=== PATIENT | female | born 1980 | race African-American/Black ===

== ENCOUNTER 2017-05-07 16:13 | Emergency (ER) | payer OTHER | END 2017-05-07 16:34 | disposition left against medical advice (07) | LOC: UCEAST 16:13 | DX: Z04.1 Encounter for examination and observation following transport accident (principal); Z53.21 Procedure and treatment not carried out due to patient leaving prior to being seen by health care provider ==

== ENCOUNTER 2017-07-17 17:51 | Inpatient (IN) | payer OTHER ==
[2017-07-17 20:48] LABS: ABS Basophils 0 10^3/ul (0-0.2); ABS Eosinophils 0 10^3/ul (0-0.6); ABS Lymphocytes 1.4 10^3/ul (1.0-4.8); ABS Monocytes 0.7 10^3/ul (0-0.8); ABS Neutrophils 7.6 10^3/ul (1.5-7.7); ABS Nucleated RBC 0 10^3/ul; Eosinophil % 0.1 % (0-6); Hematocrit 37 % (35-47); Hemoglobin 12.5 g/dl (12.0-16.0); Lymphocyte % 14.3 % (25-47); Mean Corpuscular HGB Conc 34 g/dl (31-36); Mean Corpuscular Hemoglobin 30 pg (27-31); Mean Corpuscular Volume 88 fL (80-97); Mean Platelet Volume 11.4 um3 (7.4-10.4); Nucleated Red Blood Cells % 0; Platelet Count 109 10^3/ul (150-450); Red Blood Count 4.22 10^6/ul (4.0-5.4); Red Cell Distribution Width 13 % (10.5-15); White Blood Count 9.7 10^3/ul (3.5-10.8)
[2017-07-17] MEDS ORDERED: Morphine INJ** 4 MG/ML 1 ML CARPUJECT IV ONE (21:32)
[2017-07-17] MEDS ORDERED: Ondansetron INJ* 2 MG/ML VIAL IV ONE (21:32)
[2017-07-17] MEDS ORDERED: Labetalol IV* 5 MG/ML 20 ML VIAL IV PUSH ONE (21:34)
[2017-07-17] MEDS ORDERED: Morphine INJ* 4 MG/ML 1 ML SYRINGE (NEW SYRINGE VERSION) ONE (21:49)
[2017-07-17 22:19] LABS: Urine Appearance Cloudy; Urine Blood Negative (Negative); Urine Color Amber; Urine Ketones Trace (Negative); Urine Protein Negative (Negative); Urine Red Blood Cell Absent (Absent); Urine Specific Gravity 1.023 (1.010-1.030); Urine Urobilinogen Positive (Negative); Urine White Blood Cell Trace(0-5/hpf) (Absent)
[2017-07-17] MEDS ORDERED: Piperacillin/Tazobac ADVAN(*) 3.375 GM in NS 0.9% 100 ML* 100 ML IVPB ONE ×2 (22:21→22:54)
[2017-07-17] MEDS ORDERED: Zosyn per Pharmacy* NOTE FOLLOW UP SCH (23:00)
[2017-07-18] MEDS: NS 0.9% 1000 ML* 1,000 ML IV SCH ×3 (00:09→17:05)
[2017-07-18] MEDS: Morphine INJ* 4 MG/ML 1 ML SYRINGE (NEW SYRINGE VERSION) IV PRN ×5 (00:09→22:21)
--- NOTE | 2017-07-18 00:25 | ED ---
Rayo Nair Abhishek, scribed for Alex Zarco MD on 07/17/17 at 2204 . Abdominal Pain/Female - HPI Summary HPI Summary: This pt is a 36 y/o female presenting to the [facility] with accompanied by her with a chief complain of abd pain. The pt is 8 months ( P:7 and A:0). PT does not speak Lithuanian very well and the hx is given by her . Pt has been having abd pain since this morning 07/17/17 with vomiting, nausea and hypertension. The patient rates the pain 7/10 in severity. Symptoms aggravated by nothing. Symptoms alleviated by nothing. - History of Current Complaint Chief Complaint: EDAbdPain Stated Complaint: ABD PAIN Time Seen by Provider: 07/17/17 21:23 Hx Obtained From: Patient Onset/Duration: Lasting Hours - Since this morning Timing: Constant Severity Initially: Moderate Severity Currently: Moderate Pain Intensity: 7 Pain Scale Used: 0-10 Numeric Location: Diffuse Aggravating Factor(s): Nothing Alleviating Factor(s): Nothing Associated Signs and Symptoms: Positive: Nausea, Vomiting, Other: - Hypertension Allergies/Adverse Reactions: Allergies Allergy/AdvReac Type Severity Reaction Status Date / Time No Known Allergies Allergy Verified 07/17/17 21:43 PMH/Surg Hx/FS Hx/Imm Hx Cardiovascular History: Reports: Hx Hypertension Opthamlomology History: Denies: Hx Legally Blind EENT History: Denies: Hx Deafness Infectious Disease History: No Infectious Disease History: Denies: Traveled Outside the [place] in Last 30 Days - Family History Known Family History: Positive: Diabetes - Social History Alcohol Use: None Substance Use Type: Reports: None Smoking Status (MU): Never Smoked Tobacco Review of Systems Constitutional: Negative Eyes: Negative ENT: Negative Cardiovascular: Other - Hypertensive Respiratory: Negative Positive: Abdominal Pain, Vomiting Genitourinary: Negative Musculoskeletal: Negative Skin: Negative Neurological: Negative Psychological: Normal All Other Systems Reviewed And Are Negative: Yes Physical Exam - Summary Physical Exam Summary: Appearance: Well appearing, Uncomfortable, mild distress , PT is 8 months Skin: warm, dry, reflects adequate perfusion Head/face: normal Eyes: EOMI, BIN ENT: normal Neck: supple, non-tender Respiratory: CTA, breath sounds present Cardiovascular: RRR, pulses symmetrical Abdomen: non-tender, soft, Positive murphys sign tenderness in the right upper quadrant Bowel Sounds: present Musculoskeletal: normal, strength/ROM intact Neuro: normal, sensory motor intact, A&Ox3 Triage Information Reviewed: Yes Vital Signs On Initial Exam: Initial Vitals Temp Pulse Resp BP Pulse Ox 96.9 F 51 22 118/59 100 07/17/17 17:56 07/17/17 17:56 07/17/17 17:56 07/17/17 17:56 07/17/17 17:56 Vital Signs Reviewed: Yes Diagnostics - Vital Signs Vital Signs Temp Pulse Resp BP Pulse Ox 07/17/17 21:55 20 07/17/17 20:50 97.2 F 50 134/83 100 07/17/17 17:56 96.9 F 51 22 118/59 100 - Laboratory Lab Results: Lab Results 07/17/17 07/17/17 Range/Units 20:09 20:09 WBC 9.7 (3.5-10.8) 10^3/ul RBC 4.22 (4.0-5.4) 10^6/ul Hgb 12.5 (12.0-16.0) g/dl Hct 37 (35-47) % MCV 88 (80-97) fL MCH 30 (27-31) pg MCHC 34 (31-36) g/dl RDW 13 (10.5-15) % Plt Count 109 L (150-450) 10^3/ul MPV 11.4 H (7.4-10.4) um3 Neut % (Auto) 78.6 (38-83) % Lymph % (Auto) 14.3 L (25-47) % Coke % (Auto) 6.8 (0-7) % Eos % (Auto) 0.1 (0-6) % Baso % (Auto) 0.2 (0-2) % Absolute Neuts (auto) 7.6 (1.5-7.7) 10^3/ul Absolute Lymphs (auto) 1.4 (1.0-4.8) 10^3/ul Absolute Monos (auto) 0.7 (0-0.8) 10^3/ul Absolute Eos (auto) 0 (0-0.6) 10^3/ul Absolute Basos (auto) 0 (0-0.2) 10^3/ul Absolute Nucleated RBC 0 10^3/ul Nucleated RBC % 0 Large Platelets Present Sodium 134 L (139-145) mmol/L Potassium 3.7 (3.5-5.0) mmol/L Chloride 104 (101-111) mmol/L Carbon Dioxide 20 L (22-32) mmol/L Anion Gap 10 (2-11) mmol/L BUN 8 (6-24) mg/dL Creatinine 0.57 (0.51-0.95) mg/dL Est GFR ( Amer) 154.3 (>60) Est GFR (Non-Af Amer) 120.0 (>60) BUN/Creatinine Ratio 14.0 (8-20) Glucose 83 (70-100) mg/dL Calcium 9.0 (8.6-10.3) mg/dL Total Bilirubin 1.10 H (0.2-1.0) mg/dL AST 29 (13-39) U/L ALT 25 (7-52) U/L Alkaline Phosphatase 175 H (34-104) U/L C-Reactive Protein 2.64 (< 5.00) mg/L Total Protein 7.3 (6.4-8.9) g/dL Albumin 3.5 (3.2-5.2) g/dL Globulin 3.8 (2-4) g/dL Albumin/Globulin Ratio 0.9 L (1-3) Lipase 21 (11.0-82.0) U/L Result Diagrams: 07/17/17 20:09 07/17/17 20:09 Lab Statement: Any lab studies that have been ordered have been reviewed, and results considered in the medical decision making process. - Ultrasound No standard instances Ultrasound Interpretation Completed By: Radiologist - US Gallbladder reveals, as per radiologist, cholelithiasis with thickening of the gallbladder wal measuring up to 5 mm and trace pericholecystic fluid concerning for acute cholecystitis. Negative sonographic Herrera sign was reported. Prominent common bile duct measuring up to 8.5 mm. No obstructing stones seen within the visualized portions fo the duct although cannot rule out choledocholithiasis. Consider further evaluation with MRCP. The liver visualized portion of the right kidney and visualized portions of the abdominal aorta and IVC are unremarkable. The pancreas is largely obscured by overlying bowel gas. ED physician has reviewed this radiology report. - EKG 1 EKG Rhythm: Sinus Rhythm - [address] Segment: Non-Specific EKG Interpretation: An EKG reveals Elevated j point in lead 2, no acute findings , normal axis Re-Evaluation - Re-Evaluation 2220 Re-Evaluation Time: 22:20 Change: Improved Comment: heart rate 132 with no contractions Abdominal Pain Fem Course/Dx - Course Course Of Treatment: ~35wk preg with RUQ pain,vomiting. +herrera and US evidence of cholecystitis. monitoring indicates no contractions. Pain tx and improved. BP was up initially but came down with controlled discomfort. No other findings c/w pre-ecclampsia. Plts low. LFTs wnl aside from Tbili 1.1 and alk phos up. D/W surgery who accepts, OBGYN will consult. - Diagnoses Differential Diagnosis: Positive: Other - Labor, GB dz, choledocolithiasis Provider Diagnoses: Cholecystitis, acute, Third trimester , Thrombocytopenia affecting - Provider Notifications Discussed Care Of Patient With: Rich Us - we discussed pt care after reffering to surgery, BED WORKER and hospitalist. He accepts pt care. Time Discussed With Above Provider: 22:30 Instructed by Provider To: Admit As Inpatient - Critical Care Time Critical Care Time: 30-74 min - CCT is EXCLUSIVE of separately billable procedures Discharge - Sign-Out/Discharge Documenting (check all that apply): Discharge - [place] is admitted [place] [facility] [place] Discharge Plan Condition: Guarded Disposition: ADMITTED TO [facility] - Billing Disposition and Condition Condition: GUARDED Disposition: [facility] [place] The documentation as recorded by the Rayo raman Abhishek accurately reflects the service I personally performed and the decisions made by , Alex Zarco MD.
[2017-07-18] MEDS: Piperacillin/Tazobactam 13.5 GM IV 24 hour continuous infusion IVPB SCH ×2 (03:40)
--- NOTE | 2017-07-18 07:34 | RAD ---
HISTORY: Right upper quadrant pain COMPARISONS: None TECHNIQUE: Multiple transverse and longitudinal ultrasound images were obtained of the right upper quadrant of the abdomen using grayscale and color Doppler imaging. FINDINGS: The study is limited by patient bowel gas. LIVER: The liver is normal in shape, size, contour, and echogenicity. There are no focal parenchymal masses. There is normal hepatopedal flow of the portal vein on Doppler imaging. BILIARY TREE: There is dilatation of the common duct. There is mild intrahepatic biliary dilatation The common duct measures 0.8 cm. GALLBLADDER: The gallbladder is distended. Multiple shadowing echogenic foci consistent with gallstones are noted. There is no lateral thickening up to 0.5 cm. There is pericholecystic fluid. There is no sonographic Herrera's sign.. PANCREAS: The pancreas is obscured by overlying bowel gas. RIGHT KIDNEY: The right kidney is not well visualized secondary to bowel gas. AORTA AND IVC: The visualized aorta and IVC are unremarkable. FLUID: There are no pleural effusions. There is no free fluid within the hepatorenal recess. OTHER FINDINGS: None. IMPRESSION: 1. LIMITED STUDY. 2. GALLSTONES ARE NOTED WITH GALLBLADDER WALL THICKENING AND PERICHOLECYSTIC FLUID. NO SONOGRAPHIC HERRERA'S SIGN IS REPORTED. THE IMAGING APPEARANCE IS SUGGESTIVE OF, BUT INDETERMINATE FOR, ACUTE CHOLECYSTITIS. 3. THERE IS MILD INTRAHEPATIC AND EXTRAHEPATIC BILIARY DILATATION. THE COMMON DUCT MEASURES UP TO 0.8 CM IN SIZE. GIVEN THE PRESENCE OF STONES, CHOLEDOCHOLITHIASIS IS WITHIN THE DIFFERENTIAL.
--- NOTE | 2017-07-18 08:03 | RAD ---
HISTORY: Abdominal pain, . The gestational age by dates is: 35 weeks, 1 day COMPARISONS: None available at the time of dictation. TECHNIQUE: Multiple transverse and longitudinal ultrasound images were obtained of the gravid uterus using Grayscale, color Doppler, and M-mode Doppler imaging. FINDINGS: /PLACENTAL EVALUATION: Number of fetuses: Single Presentation: Cephalic cardiac activity: 142 bpm Gross motion: Observed Placenta position: Anterior Amniotic fluid volume: Decreased, without measurable pockets in the left lower quadrant or right upper quadrant FITO: 7.47 cm BIOMETRY: Biparietal diameter: 8.29 cm 33 weeks, 3 days Head circumference: 30.92 cm 34 weeks, 4 days Abdominal circumference: 30.84 cm 35 weeks and 1 day Femur length: 6.78 cm 34 weeks, 6 days HC/AC: 1.01 Estimated weight: 2476 grams, +/- 362 grams GESTATIONAL AGE: The composite gestational age is: 34 weeks, 4 days. The ANIL is: August 24, 2017. This is concordant with age by dates ANATOMY: cranium: Not evaluated ventricles: Not evaluated choroid plexus: Not evaluated cerebellum: Not evaluated posterior fossa: Not evaluated face/orbits/lips: Not evaluated spine: Not evaluated heart: Normal 4 chamber diaphragm: Not evaluated stomach: Not evaluated kidneys: Not evaluated bladder: Not evaluated cord: Not evaluated CERVIX: The cervix is long and closed, without funneling.. The cervix measures 2.1 cm. OTHER: None IMPRESSION: 1. SINGLE LIVE INTRAUTERINE GESTATION AT 34 WEEKS, 4 DAYS BY COMPOSITE GESTATIONAL AGE. 2. OLIGOHYDRAMNIOS. THE AMNIOTIC FLUID INDEX IS AT THE 2.5TH PERCENTILE FOR GESTATIONAL AGE. 3. LIMITED EVALUATION OF ANATOMY. PRELIMINARY FINDINGS WERE DISCUSSED WITH VIKTORIYA, THE NURSE CARING FOR THE PATIENT, AT APPROXIMATELY 7:59 AM ON JULY 18, 2017.
[2017-07-18] MEDS: Ondansetron INJ* 2 MG/ML VIAL IV PRN ×2 (08:15→22:22)
--- NOTE | 2017-07-18 09:12 | PN ---
Progress Note - Progress Note Date of Service: 07/18/17 Note: H&P dictated. Impression/Plan: Acute calculous cholecystitis in a 36 weeks female Continue IV Abx OB consultation appreciated, monitoring Hopefully to improve with antibiotics until delivery time IVF and analgesics
--- NOTE | 2017-07-18 14:50 | PN ---
Progress Note - Progress Note Date of Service: 07/18/17 Note: Surgery Ms. Dale seen with Dr. Duran who translated. She indicated that she has been tolerating clears and that the pain is still there, but better than yesterday Abd: Gravid, soft, tender without guarding in the RUQ and epigastrium. Laboratory Results - last 24 hr 07/17/17 07/17/17 07/17/17 20:09 20:09 22:00 WBC 9.7 RBC 4.22 Hgb 12.5 Hct 37 MCV 88 MCH 30 MCHC 34 RDW 13 Plt Count 109 L MPV 11.4 H Neut % (Auto) 78.6 Lymph % (Auto) 14.3 L Calloway % (Auto) 6.8 Eos % (Auto) 0.1 Baso % (Auto) 0.2 Absolute Neuts (auto) 7.6 Absolute Lymphs (auto) 1.4 Absolute Monos (auto) 0.7 Absolute Eos (auto) 0 Absolute Basos (auto) 0 Absolute Nucleated RBC 0 Nucleated RBC % 0 Large Platelets Present Sodium 134 L Potassium 3.7 Chloride 104 Carbon Dioxide 20 L Anion Gap 10 BUN 8 Creatinine 0.57 Est GFR ( Amer) 154.3 Est GFR (Non-Af Amer) 120.0 BUN/Creatinine Ratio 14.0 Glucose 83 Calcium 9.0 Total Bilirubin 1.10 H AST 29 ALT 25 Alkaline Phosphatase 175 H C-Reactive Protein 2.64 Total Protein 7.3 Albumin 3.5 Globulin 3.8 Albumin/Globulin Ratio 0.9 L Lipase 21 Urine Color Nicolle Urine Appearance Cloudy Urine pH 5.0 Ur Specific Piggott 1.023 Urine Protein Negative Urine Ketones Trace A Urine Blood Negative Urine Nitrate Negative Urine Bilirubin Negative Urine Urobilinogen Positive A Ur Leukocyte Esterase 2+ A Urine WBC (Auto) Trace(0-5/hpf) Urine RBC (Auto) Absent Ur Squamous Epith Cells Present A Urine Bacteria Absent Urine Glucose Negative A/P: Stable exam; will continue abx and observation. CLFoster
--- NOTE | 2017-07-18 16:57 | CONS ---
AMENDED REPORT NOW INCLUDES DATE OF CONSULT - ESIGNED BEFORE ADJUSTMENT SURGICAL CONSULTATION REPORT: DATE OF CONSULT: 07/18/17 HISTORY OF PRESENT ILLNESS: Mrs. Dale is a 36-year-old multiparous lady, 8, para 7-0-0-7 with an intrauterine at 35 and 2/7th weeks, estimated gestational age. She was admitted to the hospital last night with diagnosis of abdominal pain secondary to cholelithiasis. The patient's care has been uncomplicated to this date except for first trimester nausea and varicose veins which are treated with compression stockings. The patient is up-to- date with her flu and TDAP vaccines and care. PAST MEDICAL HISTORY: Asymptomatic uterine fibroids. PAST SURGICAL HISTORY: None. OBSTETRICAL HISTORY: Seven full-term spontaneous vaginal deliveries without complications. GYNECOLOGIC HISTORY: Denies history of sexually transmitted diseases. FAMILY HISTORY: Diabetes. 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 Limited Serbian language proficiency. She speaks Guyanese. She denies cigarette, alcohol or drug use. REVIEW OF SYSTEMS: The patient is in bed. She appears comfortable after taking pain medication. She denies chest pain, palpitations. Denies shortness of breath, has had no nausea or vomiting this morning. She asked about eating this a.m. and she states she is a bit hungry. She denies uterine contractions, admits to movement. She denies leakage of fluid. No vaginal bleeding. She also denies any headaches or visual changes. PHYSICAL EXAM: Vital Signs: This morning, she is afebrile, stable vital signs with normal blood pressure. Her lungs are clear to auscultation bilaterally. Her heart shows regular rate and rhythm with no abnormal heart sounds. Her abdomen is soft, gravid with palpable movement. No contractions. She has a right upper quadrant pain and guarding. Pelvic exam was deferred. Her bilateral lower extremities show +2 normal reflexes. DIAGNOSTIC STUDIES/LAB DATA: Labs review, complete blood cell count, complete metabolic panel along with a lipase level, gallbladder ultrasound and a ultrasound. CBC is consistent with thrombocytopenia. Her liver function studies are within normal limits. Lipase is also normal. Gallbladder ultrasound consistent with cholelithiasis. Her ultrasound shows appropriate interval growth with an amniotic fluid index of 7.4 cm which is within normal limits. IMPRESSION AND PLAN: This is a at 35 weeks estimated gestational age , complicated with right upper quadrant pain, cholelithiasis. I agree with conservative management with IV hydration, antibiotics and analgesia. I would defer to Surgical team to asses for need of surgical intervention, which should be for similar indications as a non patient. My recommendations are daily non-stress for well being, please call labor and delivery if the patient has any signs or symptoms of labor, if possible patient should lie in a left lateral decubitus position. You may also want to consider a consultation with Anesthesia especially if surgery becomes more of a reality. [id number]/[facility] #: [id number] MARIKAD
--- NOTE | 2017-07-18 17:30 | HP ---
CC: Dr. Ger Ibanez HISTORY AND PHYSICAL: DATE OF ADMISSION: 07/17/17 PATIENT OF: Rich Us MD * (DICTATED BY PRAVEEN COUGHLIN) CHIEF COMPLAINT: Abdominal pain. HISTORY OF PRESENT ILLNESS: Vandana is a pleasant 36-year-old female who presented to the emergency room at [facility] with 24-hour history of worsening abdominal pain. The patient is an 8-month female who is G8, P7, who speaks very little Nigerien and most of her history was obtained from the ED note as well as her . She presented complaining of upper abdominal pain that started earlier that morning with associated and nausea and vomiting. She described it as dull aching pain with sharp episodes localized to the epigastric and right upper quadrant area and radiates to her back. Pain was aggravated by nothing and alleviated by rest and time. She reports similar complaints of abdominal pain on and off over the years that usually resolved with time. She had migrated to the [facility] few years ago and lives with her who works as a migrant worker at local [employer]. The patient was evaluated in the emergency room and had laboratory workup as well as an ultrasound that revealed evidence of cholelithiasis as well as thickening of gallbladder wall, for which we were asked to see the patient for further evaluation of possible cholecystitis. PAST MEDICAL HISTORY: Essentially unremarkable. She is a previously healthy young female with only history of hypertension in the past that is likely related to her multiple pregnancies. She denies any history of heart, liver, lungs or kidney disease. PAST SURGICAL HISTORY: None. CURRENT MEDICATIONS: She does not take any medications on a regular basis. ALLERGIES: She has no known drug allergies. FAMILY HISTORY: Reports family history of diabetes in her family, but denies any family history of gallbladder disease or colorectal malignancies. 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 She has never smoked or drinks alcohol. She lives at home and takes care of her kids. REVIEW OF SYSTEMS: See HPI, otherwise negative. She denies any headache, dizziness, blurred vision or syncope. No hearing loss, visual changes, sore throat, cough, wheezing or shortness of breath. She denies any chest pain, palpitation or ankle swelling. No back pain, flank pain, suprapubic pain, dysuria, hematuria or urinary frequency. She denies any pelvic pain or contraction or vaginal bleeding. She reports upper abdominal pain radiating to her back with associated nausea and vomiting but denies any changes in the color of stool or urine. No fever, chills, night sweats or recent weight loss. PHYSICAL EXAMINATION GENERAL: She is a pleasant, healthy appearing young female in no acute distress or discomfort at the time of admission. VITAL SIGNS: Most recent set of vitals reveal temperature of 98.7, pulse 62, blood pressure of 123/69, respirations of 16 and O2 sat of 98% on room air. HEENT: Head is normocephalic, atraumatic. Sclerae anicteric. PERRLA. EOMs intact. Oropharynx is dry. NECK: Supple. Trachea midline. No cervical adenopathy or thyromegaly. LUNGS: Clear to auscultation bilaterally. HEART: Regular rate and rhythm. Normal S1, S2 without rubs, murmurs, or gallops. ABDOMEN: Soft and gravid, with fundus of uterus 2 to 3 finger width beyond the xiphoid process. There is moderate epigastric and right upper quadrant tenderness with light palpation. There is some guarding but no rigidity or rebound tenderness. There are no hernias, masses or hepatosplenomegaly. There are multiple striae in the abdomen from previous multiple pregnancies. Herrera' s sign was positive. EXTREMITIES: Without cyanosis, clubbing or edema. RECTAL: Deferred at this time. NEUROLOGIC: Grossly intact. BACK: Normal curvature. No CVA tenderness. BREAST: Deferred at this time. ACCESSORY DIAGNOSTIC DATA: The patient had an ultrasound of the right upper quadrant last night that revealed evidence of gallstones as well as gallbladder wall thickening and pericholecystic fluid. The common bile duct measured up to 8th mm suggesting possibility of choledocholithiasis. The patient also had ultrasound that revealed a live intrauterine conception with estimated gestation of 35 weeks. LABORATORY WORKUP: The patient had a CBC last night that revealed white count of 9000, hemoglobin of 12.5, hematocrit of 37 and low platelets of 109. Her chemistry panel with sodium of 134, potassium 3.7, chloride 104, CO2 of 20, BUN of 8, and creatinine of 0.6. Her LFTs with slightly elevated bilirubin of 1.1 and alkaline phosphatase of 175. The rest was all within normal limits. Her urinalysis revealed a positive uro-bilirubin and 2+ leukocyte esterase with traces of ketones. IMPRESSION: A 36-year-old female, G8, P7 who presents with signs and symptoms consistent with acute calculus cholecystitis. PLAN/RECOMMENDATIONS: The patient was seen and examined with Dr. Us last night. We will keep her n.p.o. for the time being and initiate empiric antibiotic therapy. OB consultation was requested and is being done this morning. She appears to be comfortable this morning from surgical point of view and we will maintain her on antibiotic for the time being hopefully to avoid any surgical intervention until delivery of her child. I discussed with her the possibility of surgical intervention if she does not improve on the IV antibiotics or the possibility of cholecystotomy to perform gallbladder drainage to buy time until delivery. We will await the recommendation of OB consult and we will follow her up closely. PRAVEEN COUGHLIN [id number]/[facility] #: [id number] CARLOS
[2017-07-19] MEDS: Morphine INJ* 4 MG/ML 1 ML SYRINGE (NEW SYRINGE VERSION) IV PRN ×2 (00:38→04:45)
[2017-07-19] MEDS: NS 0.9% 1000 ML* 1,000 ML IV SCH ×3 (01:33→21:09)
[2017-07-19] MEDS: Piperacillin/Tazobactam 13.5 GM IV 24 hour continuous infusion IVPB SCH ×2 (04:39)
[2017-07-19] MEDS: Ondansetron INJ* 2 MG/ML VIAL IV PRN ×3 (04:45→19:08)
[2017-07-19 05:44] LABS: ABS Basophils 0 10^3/ul (0-0.2); ABS Eosinophils 0 10^3/ul (0-0.6); ABS Lymphocytes 1.4 10^3/ul (1.0-4.8); ABS Monocytes 0.4 10^3/ul (0-0.8); ABS Neutrophils 3.9 10^3/ul (1.5-7.7); ABS Nucleated RBC 0 10^3/ul; Eosinophil % 0.4 % (0-6); Hematocrit 35 % (35-47); Hemoglobin 11.9 g/dl (12.0-16.0); Mean Corpuscular HGB Conc 34 g/dl (31-36); Mean Corpuscular Hemoglobin 30 pg (27-31); Mean Corpuscular Volume 89 fL (80-97); Nucleated Red Blood Cells % 0.1; Platelet Count 94 10^3/ul (150-450); Red Blood Count 3.95 10^6/ul (4.0-5.4); Red Cell Distribution Width 14 % (10.5-15); White Blood Count 5.7 10^3/ul (3.5-10.8)
[2017-07-19] MEDS ORDERED: Morphine VIAL* 4 MG/ML VIAL (1 ml vial) IV PRN (07:42)
[2017-07-19] MEDS ORDERED: Morphine VIAL* 4 MG/ML VIAL (1 ml vial) IV ONE (07:55)
--- NOTE | 2017-07-19 08:35 | PN ---
Progress Note - Progress Note Date of Service: 07/19/17 SOAP: Subjective: Interview conducted with online solar sales assessor. She feels about the same as yesterday--requiring some narcotic pain meds with good result. Also has some pain after drinking fluids. No nausea or vomiting. No uterine contractions Objective: Temp Pulse Resp BP Pulse Ox 97.6 F 70 20 125/62 96 07/19/17 07:28 07/19/17 07:28 07/19/17 07:28 07/19/17 07:28 07/19/17 07:28 Intake & Output 07/17/17 07/18/17 07/19/17 07/20/17 06:59 06:59 06:59 06:59 Intake Total 852 4079 Output Total 350 2300 250 Balance 502 1779 -250 Weight 175 lb Intake: IV Fluids 852 2879 ABX - ZOSYN 61 375 NS (0.9%) 791 2504 Oral 0 1200 Output: Urine 350 2300 250 Other: Estimated Void Medium # Voids 1 PEX: Comfortable Awake and alert Lungs are clear Abd is protuberant--bowel sounds are present and normoactive. Mild tenderness in epigastrum and right upper quadrant without rebound or guarding. Uterus palpated well above the umbilicus Laboratory Results - last 24 hr 07/19/17 07/19/17 04:59 04:59 WBC 5.7 RBC 3.95 L Hgb 11.9 L Hct 35 MCV 89 MCH 30 MCHC 34 RDW 14 Plt Count 94 L MPV 11.0 H Neut % (Auto) 67.4 Lymph % (Auto) 24.0 L [place] % (Auto) 7.8 H Eos % (Auto) 0.4 Baso % (Auto) 0.4 Absolute Neuts (auto) 3.9 Absolute Lymphs (auto) 1.4 Absolute Monos (auto) 0.4 Absolute Eos (auto) 0 Absolute Basos (auto) 0 Absolute Nucleated RBC 0 Nucleated RBC % 0.1 Sodium 136 L Potassium 3.8 Chloride 107 Carbon Dioxide 21 L Anion Gap 8 BUN 6 Creatinine 0.61 Est GFR ( Amer) 142.7 Est GFR (Non-Af Amer) 111.0 BUN/Creatinine Ratio 9.8 Glucose 68 L Calcium 8.6 Total Bilirubin 1.00 AST 19 ALT 23 Alkaline Phosphatase 181 H Total Protein 6.5 Albumin 3.2 Globulin 3.3 Albumin/Globulin Ratio 1.0 Assessment: Cholelithiasis--probable acute calculous cholecystitis-nl WBC, no fever but complaints of pain about the same--worse when trying liquids. - approximately 34-35 weeks Plan: Will keep NPO IV abx Close observation-if no improvement next 24 hours will have to consider cholecystectomy, will also look into possibility of percutaneous drainage. All discussed with patient.
[2017-07-19] MEDS: Morphine VIAL* 4 MG/ML VIAL (1 ml vial) IV PRN ×2 (11:31→13:57)
--- NOTE | 2017-07-19 13:46 | PN ---
Progress Note - Progress Note Date of Service: 07/19/17 Note: pt feelling slight improvement but continued pain when she eats or drinks. baby is active reviewed surgery note. no current change in recommendations by us. will continue to be available for consultation . will check nst
[2017-07-19] MEDS ORDERED: Morphine INJ* 2 MG/ML 1 ML CARPUJECT IV PRN (15:05)
[2017-07-20] MEDS: NS 0.9% 1000 ML* 1,000 ML IV SCH (05:08)
[2017-07-20] MEDS: Piperacillin/Tazobactam 13.5 GM IV 24 hour continuous infusion IVPB SCH ×2 (08:10)
--- NOTE | 2017-07-20 08:17 | PN ---
Progress Note - Progress Note Date of Service: 07/20/17 Note: Surgery Ms. Dale denies pain, she is hungry for more food. She has not had pain medicine or zofran since 7 pm last night. Vital Signs 07/19/17 07/19/17 07/19/17 11:46 15:10 19:07 Temperature 99.3 F 97.7 F Pulse Rate 71 59 Respiratory 18 18 16 Rate Blood Pressure 133/69 127/77 (mmHg) O2 Sat by Pulse 95 98 Oximetry 07/19/17 07/19/17 07/19/17 19:22 19:33 21:18 Temperature 98.1 F Pulse Rate 72 Respiratory 16 16 16 Rate Blood Pressure 143/80 (mmHg) O2 Sat by Pulse 97 Oximetry 07/19/17 07/20/17 07/20/17 23:44 04:08 07:18 Temperature 98.5 F 98.2 F 98.6 F Pulse Rate 78 59 57 Respiratory 16 16 17 Rate Blood Pressure 137/82 135/78 147/80 (mmHg) O2 Sat by Pulse 97 97 99 Oximetry Abd: good BS, gravid, non-tender. Intake & Output 07/19/17 07/20/17 07/20/17 22:59 06:59 14:59 Intake Total 2402 956 495 Output Total 1450 1600 Balance 952 -644 495 Intake: IV Fluids 721 956 NS (0.9%) 721 956 IVPB 121 495 ABX - ZOSYN 121 495 Oral 1560 0 Output: Urine 1450 1600 A/P: Improving. Will advance diet. If tolerates, can go home if okay with Dr. Duran. Soheila
[2017-07-20] MEDS ORDERED: Amoxicillin/Clavulanate TAB* 875 MG PO SCH (09:00)
[2017-07-20 12:47] VITALS: BP 120/68
--- NOTE | 2017-07-20 22:30 | DS ---
CC: [facility] DISCHARGE SUMMARY: DATE OF ADMISSION: 07/19/17 She was first seen in the hospital, admitted to the hospital on 07/18/17. DATE OF DISCHARGE: 07/20/17 ADMISSION DIAGNOSIS: Cholecystitis. DISCHARGE DIAGNOSIS: Cholecystitis. HOSPITAL COURSE: Please see admission history and physical for details of finding at the time of adm ission. During her hospitalization, not on any antibiotics. She is steadily improved such that by t he third day in the hospital, she was able to tolerate a diet and was pain free and nausea free. She was given instructions to follow up with Dr. Duran as an outpatient and she will call [facility] for any problems. [id number]/[facility] #: [id number]
== END 2017-07-20 13:40 | disposition home or self-care (01) | DRG 566 ==
LOC: ED 17:51 → SSU 22:52 → OBSVTOIN 07-19 13:09
PROVIDERS: ADMIT Surgery; ATTEND Surgery
PROC: 4A1HX4Z Monitoring of Products of Conception, Cardiac Electrical Activity, External Approach (ICD-10-PCS; principal; 2017-07-19)
DX: O99.613 Diseases of the digestive system complicating pregnancy, third trimester (principal); K80.00 Calculus of gallbladder with acute cholecystitis without obstruction; O99.113 Other diseases of the blood and blood-forming organs and certain disorders involving the immune mechanism complicating pregnancy, third trimester; O16.3 Unspecified maternal hypertension, third trimester; D69.6 Thrombocytopenia, unspecified; Z83.3 Family history of diabetes mellitus; Z3A.36 36 weeks gestation of pregnancy
CPT/HCPCS: 36415; 76705; 76815; 80053; 81003; 81015; 83690; 85025; 86140; 87077; 87086; 99284; A9270-GY; G0378; J2270; J2405; J2543

== ENCOUNTER 2017-08-11 02:55 | Inpatient (IN) | payer OTHER ==
[2017-08-11] MEDS ORDERED: OBEPIDURAL* 0 ML EPIDURAL ONE (03:41)
[2017-08-11 04:06] LABS: ABS Basophils 0.1 10^3/ul (0-0.2); ABS Eosinophils 0 10^3/ul (0-0.6); ABS Lymphocytes 2.6 10^3/ul (1.0-4.8); ABS Monocytes 0.8 10^3/ul (0-0.8); ABS Neutrophils 7.7 10^3/ul (1.5-7.7); ABS Nucleated RBC 0 10^3/ul; Eosinophil % 0.2 % (0-6); Hematocrit 38 % (35-47); Hemoglobin 12.5 g/dl (12.0-16.0); Lymphocyte % 23.3 % (25-47); Mean Corpuscular HGB Conc 33 g/dl (31-36); Mean Corpuscular Hemoglobin 29 pg (27-31); Mean Corpuscular Volume 88 fL (80-97); Mean Platelet Volume 11.1 um3 (7.4-10.4); Nucleated Red Blood Cells % 0.1; Platelet Count 82 10^3/ul (150-450); Red Blood Count 4.29 10^6/ul (4.0-5.4); Red Cell Distribution Width 15 % (10.5-15); White Blood Count 11.2 10^3/ul (3.5-10.8)
[2017-08-11 04:30] LABS: EGFR Non-African American 106.9 (>60)
[2017-08-11] MEDS ORDERED: Oxytocin in LR* 20 UNITS/1,000 ML BAG IVPB ONE (04:33)
[2017-08-11 04:35] LABS: Urine Appearance Cloudy; Urine Blood 3+ (Negative); Urine Color Yellow; Urine Ketones Negative (Negative); Urine Protein 1+(30 mg/dL) (Negative); Urine Specific Gravity 1.012 (1.010-1.030); Urine Urobilinogen Negative (Negative)
--- NOTE | 2017-08-11 04:45 | HP ---
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 Pertinent Past Surgical History: None Pertinent Family History: See Records Family History Comment: DM - Antepartal Records Antepartal Records: Reviewed, Complicated by: - colethasis, grandmultiparity, AMA, varicose veins Review of Systems Constitutional: Uncomfortable CV Complaint: No Respiratory: Shortness of Breath: No Gastrointestinal: No Nausea/Vomiting, Normal Bowel Movement Genitourinary: No Bleeding, No Leaking Fluid Musculoskeletal: Contractions Neurological: No Visual Changes Movement: Normal Exam Allergies/Adverse Reactions: Allergies No Known Allergies Allergy (Verified 07/17/17 21:43) T: 98.2, P: 90, R:18, B/P: 150/93 Lab Values - Entire Visit: Laboratory Tests 08/11/17 08/11/17 08/11/17 03:35 03:35 03:35 WBC 11.2 H RBC 4.29 Hgb 12.5 Hct 38 MCV 88 MCH 29 MCHC 33 RDW 15 Plt Count 82 L MPV 11.1 H Neut % (Auto) 68.2 Lymph % (Auto) 23.3 L [place] % (Auto) 7.4 H Eos % (Auto) 0.2 Baso % (Auto) 0.9 Absolute Neuts (auto) 7.7 Absolute Lymphs (auto) 2.6 Absolute Monos (auto) 0.8 Absolute Eos (auto) 0 Absolute Basos (auto) 0.1 Absolute Nucleated RBC 0 Nucleated RBC % 0.1 Sodium 135 L Potassium 4.2 Chloride 107 Carbon Dioxide 21 L Anion Gap 7 BUN 10 Creatinine 0.63 Est GFR ( Amer) 137.5 Est GFR (Non-Af Amer) 106.9 BUN/Creatinine Ratio 15.9 Glucose 84 Calcium 8.7 Total Bilirubin 0.50 AST 21 ALT 32 Alkaline Phosphatase 300 H Total Protein 6.6 Albumin 3.4 Globulin 3.2 Albumin/Globulin Ratio 1.1 Urine Color Urine Appearance Urine pH Ur Specific [place] Urine Protein Urine Ketones Urine Blood Urine Nitrate Urine Bilirubin Urine Urobilinogen Ur Leukocyte Esterase Urine WBC (Auto) Urine RBC (Auto) Ur Squamous Epith Cells Urine Bacteria Urine Glucose Blood Type O Positive Antibody Screen Negative 08/11/17 04:00 WBC RBC Hgb Hct MCV MCH MCHC RDW Plt Count MPV Neut % (Auto) Lymph % (Auto) [place] % (Auto) Eos % (Auto) Baso % (Auto) Absolute Neuts (auto) Absolute Lymphs (auto) Absolute Monos (auto) Absolute Eos (auto) Absolute Basos (auto) Absolute Nucleated RBC Nucleated RBC % Sodium Potassium Chloride Carbon Dioxide Anion Gap BUN Creatinine Est GFR ( Amer) Est GFR (Non-Af Amer) BUN/Creatinine Ratio Glucose Calcium Total Bilirubin AST ALT Alkaline Phosphatase Total Protein Albumin Globulin Albumin/Globulin Ratio Urine Color Yellow Urine Appearance Cloudy Urine pH 7.0 Ur Specific [place] 1.012 Urine Protein 1+(30 mg/dl) A Urine Ketones Negative Urine Blood 3+ A Urine Nitrate Negative Urine Bilirubin Negative Urine Urobilinogen Negative Ur Leukocyte Esterase 3+ A Urine WBC (Auto) 3+(>20/hpf) A Urine RBC (Auto) 1+(3-5/hpf) A Ur Squamous Epith Cells Present A Urine Bacteria 1+ A Urine Glucose Negative Blood Type Antibody Screen - Measurements Weight: 172 lb 15.983 oz Weight in lbs: 172.998 Pre- Weight: 154 lb 0.012 oz Weight Gained This : 18.998 lbs and 0.003 ozs - Exam Abdomen: No Upper Quadrant Pain Breast: Breast Exam Deferred CVA: No CVA Tenderness Extremities: No Edema Heart: Normal Rhythm/Heart Sounds HEENT: No Significant Findings Lungs: Clear Bilaterally Rectal: Rectal Exam Deferred Reflexes: DTR 2+ Thyroid: No Thyromegaly - Cervical Exam /-1 - Abdominal Exam Abdomen Exam: Non-Tender - Membranes Membrane Status: Intact EFM Findings - External Monitor Findings Baseline Heart Rate: 140 External Monitor Findings: Accelerations Present, No Pattern of Variable or Late Decelerations, Variability Moderate, Baseline Stable Contractions: Regular, Moderate, 45-90 Seconds Assessment/Plan - Reason for Visit Reason for Visit: Active labor - Obstetrical Risk Factors Risk Factors Comment: AMA, cholethasis - Plan Plan: Active Labor - Date/Time of Admission Date of Admission: 08/11/17 Time of Admission: 03:00
[2017-08-11] MEDS ORDERED: Ibuprofen TAB* 600 MG PO PRN (04:50)
[2017-08-11] MEDS ORDERED: Witch Hazel PAD* JAR TOPICAL PRN (04:50)
[2017-08-11] MEDS ORDERED: Dibucaine 1% 28.35 GM TUBE PR PRN (04:50)
[2017-08-11] MEDS ORDERED: Glycerin ADULT SUPP PR PRN (04:50)
[2017-08-11] MEDS ORDERED: Acetaminophen TAB* 325 MG PO PRN (04:50)
[2017-08-11] MEDS ORDERED: Oxytocin in LR* 20 UNITS/1,000 ML BAG IVPB SCH (05:00)
[2017-08-11] MEDS: oxyCODONE TAB* 5 MG TAB PO PRN ×4 (06:05→19:24)
[2017-08-11] MEDS: Docusate CAP* 100 MG PO SCH ×3 (08:36→20:53)
[2017-08-11] MEDS: Simethicone TAB* 80 MG TAB.CHEW PO SCH ×3 (08:36→18:38)
[2017-08-12] MEDS: oxyCODONE TAB* 5 MG TAB PO PRN ×4 (04:34→18:36)
[2017-08-12 07:01] LABS: Hematocrit 34 % (35-47); Hemoglobin 11.5 g/dl (12.0-16.0); Mean Corpuscular HGB Conc 34 g/dl (31-36); Mean Corpuscular Hemoglobin 30 pg (27-31); Mean Corpuscular Volume 88 fL (80-97); Platelet Count 71 10^3/ul (150-450); Red Blood Count 3.86 10^6/ul (4.0-5.4); Red Cell Distribution Width 15 % (10.5-15); White Blood Count 11.3 10^3/ul (3.5-10.8)
[2017-08-12 07:22] LABS: ABS Basophils 0 10^3/ul (0-0.2); ABS Eosinophils 0.1 10^3/ul (0-0.6); ABS Lymphocytes 3.5 10^3/ul (1.0-4.8); ABS Monocytes 0.7 10^3/ul (0-0.8); ABS Nucleated RBC 0 10^3/ul; Eosinophil % 0.5 % (0-6); Lymphocyte % 30.9 % (25-47); Nucleated Red Blood Cells % 0.1
[2017-08-12] MEDS: Docusate CAP* 100 MG PO SCH ×3 (08:46→21:08)
[2017-08-12] MEDS ORDERED: Ferrous Gluconate TAB* 324 MG TAB PO SCH (09:00)
[2017-08-12] MEDS: Labetalol TAB* 100 MG PO SCH ×2 (10:14→21:08)
[2017-08-12 10:23] LABS: Urine Appearance Cloudy; Urine Blood 3+ (Negative); Urine Color Yellow; Urine Ketones Negative (Negative); Urine Protein 1+(30 mg/dL) (Negative); Urine Specific Gravity 1.006 (1.010-1.030); Urine Urobilinogen Negative (Negative)
[2017-08-12 10:28] LABS: EGFR Non-African American 93.1 (>60)
[2017-08-13] MEDS: oxyCODONE TAB* 5 MG TAB PO PRN (04:23)
[2017-08-13 06:49] LABS: Hematocrit 34 % (35-47); Hemoglobin 11.4 g/dl (12.0-16.0); Mean Corpuscular HGB Conc 33 g/dl (31-36); Mean Corpuscular Hemoglobin 30 pg (27-31); Mean Corpuscular Volume 89 fL (80-97); Red Blood Count 3.85 10^6/ul (4.0-5.4); Red Cell Distribution Width 15 % (10.5-15); White Blood Count 7.3 10^3/ul (3.5-10.8)
[2017-08-13 08:16] VITALS: BP 130/70
[2017-08-13] MEDS: Labetalol TAB* 100 MG PO SCH (08:16)
[2017-08-13] MEDS: Docusate CAP* 100 MG PO SCH (08:16)
[2017-08-13 08:27] LABS: ABS Basophils 0 10^3/ul (0-0.2); ABS Eosinophils 0.1 10^3/ul (0-0.6); ABS Lymphocytes 2.3 10^3/ul (1.0-4.8); ABS Monocytes 0.5 10^3/ul (0-0.8); ABS Neutrophils 4.4 10^3/ul (1.5-7.7); ABS Nucleated RBC 0 10^3/ul; Eosinophil % 0.7 % (0-6); Lymphocyte % 31.7 % (25-47); Mean Platelet Volume 11.5 um3 (7.4-10.4); Nucleated Red Blood Cells % 0.1; Platelet Count 99 10^3/ul (150-450)
== END 2017-08-13 12:27 | disposition home or self-care (01) | DRG 560 ==
LOC: MCHOBOUT 02:55 → MCHOB 03:16
PROVIDERS: ADMIT Midwife; ATTEND Midwife
PROC: 10E0XZZ Delivery of Products of Conception, External Approach (ICD-10-PCS; principal; 2017-08-11)
DX: O14.94 Unspecified pre-eclampsia, complicating childbirth (principal); K83.1 Obstruction of bile duct; O99.12 Other diseases of the blood and blood-forming organs and certain disorders involving the immune mechanism complicating childbirth; O26.62 Liver and biliary tract disorders in childbirth; D69.6 Thrombocytopenia, unspecified; Z3A.38 38 weeks gestation of pregnancy; Z37.0 Single live birth
CPT/HCPCS: 36415; 80053; 81003; 81015; 85025; 86850; 86900; 86901; 87077; 87086; A9270-GY

== ENCOUNTER 2017-09-09 10:09 | Day surgery (SDC) | payer OTHER ==
[~2017-09-09 10:09] MED LIST: Buffered Lidocaine 0.9% SYRIN* 5 ML/SYR SYRINGE INTRADERM ONE; Dexamethasone TAB* 4 MG PO ONE; DiMENhydriNATE IV* 50 MG/ML VIAL IV PUSH PRN; Famotidine IV* 10 MG/ML 2 ML (20 mg) IV ONE; Morphine INJ* 2 MG/ML 1 ML CARPUJECT IV PRN; Naloxone* 0.4 MG/ML 1 ML VIAL IV PRN; Ondansetron INJ* 2 MG/ML VIAL ONE; PROCHLORPERAZINE INJ 5 MG/ML 2 ML VIAL IV PRN; Scopolamine 1.5 mg* PATCH TRANSDERM PRN; oxyCODONE/Acetamin 5/325 MG* TAB PO PRN
[2017-09-09] MEDS ORDERED: Ondansetron ODT TAB* 4 MG ONE (10:19)
[2017-09-09] MEDS ORDERED: Famotidine IV* 10 MG/ML 2 ML (20 mg) ONE (10:19)
[2017-09-09] MEDS ORDERED: Buffered Lidocaine 0.9% SYRIN* 5 ML/SYR SYRINGE ONE (10:20)
[2017-09-09] MEDS ORDERED: Dexamethasone TAB* 4 MG ONE (10:20)
[2017-09-09] MEDS ORDERED: ceFAZolin 2 GM PREMIX (*) 2 GM/50 ML BAG IVPB ONE (10:21)
[2017-09-09] MEDS ORDERED: Bupivacaine 0.25% SDV* 30 ML ONE (11:17)
[2017-09-09] MEDS ORDERED: Midazolam* 1 MG/ML 5 ML VIAL (5 MG) ONE (11:34)
[2017-09-09] MEDS ORDERED: fentaNYL* 50 MCG/ML 2 ML VIAL (100 MCG VIAL) ONE ×2 (11:34→14:08)
[2017-09-09] MEDS ORDERED: Morphine INJ* 10 MG/ML 1 ML CARPUJECT ONE (12:35)
[2017-09-09] MEDS ORDERED: PROCHLORPERAZINE INJ 5 MG/ML 2 ML VIAL ONE (12:42)
[2017-09-09] MEDS ORDERED: Propofol* 10 MG/ML 20 ML BTL IV PUSH ONE (12:42)
[2017-09-09] MEDS ORDERED: Ketorolac INJ* 30 MG/ML 1 ML VIAL ONE (12:42)
[2017-09-09] MEDS ORDERED: Glycopyrrolate IV* 0.2 MG/ML 1 ML VIAL ONE (12:42)
[2017-09-09] MEDS ORDERED: Lidocaine 2% PF * 5 ML VIAL ONE (12:42)
[2017-09-09] MEDS: fentaNYL* 50 MCG/ML 2 ML VIAL (100 MCG VIAL) IV PRN ×2 (14:10→14:47)
[2017-09-09] MEDS ORDERED: oxyCODONE/Acetamin 5/325 MG* TAB ONE (14:18)
[2017-09-09 15:24] VITALS: BP 155/89
--- NOTE | 2017-09-10 11:23 | OP ---
DATE OF OPERATION: 09/09/17 - [facility] DATE OF : 80 SURGEON: Rich Us MD RETORT FURNACE OPERATOR: Lizeth Rodriguez NP ANESTHESIOLOGIST: Dr. Escobar. ANESTHESIA: General with local. PRE-OP DIAGNOSES: 1. Cholelithiasis and right upper quadrant abdominal pain. 2. History of acute calculus cholecystitis. POST-OP DIAGNOSES: 1. Cholelithiasis and right upper quadrant abdominal pain. 2. History of acute calculus cholecystitis. OPERATIVE PROCEDURE: Laparoscopic cholecystectomy. ESTIMATED BLOOD LOSS: Minimal. WOUND CLASSIFICATION: 2. COMPLICATIONS: None. DRAINS: None. SPECIMENS: Gallbladder. BRIEF HISTORY: Ms. Vandana Dale is a 36-year-old woman who delivered a healthy baby boy one month ago. About 6 to 7 weeks ago, she had been admitted with acute calculus cholecystitis at the third term of her and was treated successfully with IV antibiotics and now she presents for an interval cholecystectomy. DESCRIPTION OF PROCEDURE: Written and informed consent was obtained, the abdomen was marked with indelible ink and preoperative antibiotics were administered. The patient was taken to the operating room, placed in the supine position. Sequential compression devices and a warming blanket were applied. General anesthesia was administered. Time-out verification was completed. A small transverse incision was made just above the umbilicus, in the midline, and the peritoneal cavity was entered under direct vision. A 12-mm blunt port was inserted and the abdomen was insufflated to 15 mmHg. Under direct vision, an 11 mm epigastric port was placed and two 5 mm ports were placed in the right side of the abdominal wall. The gallbladder was identified. It was slightly thickened in wall thickness, with a whitish color, but it was not particularly distended, easily grasped, but no signs of acute inflammation. The gallbladder was elevated up over the liver bed with care. The peritoneum along the medial and lateral aspects of the infundibular area was taken down and the cystic duct and artery were identified and dissected free as they entered the gallbladder. I took a considerable portion of the inferior part of the gallbladder off the liver bed using the critical view technique to assure myself of these two structures. The cystic duct and cystic artery were then triply clipped and divided without difficulty. The gallbladder was then removed from the liver bed using cautery and placed in an EndoCatch bag and brought out through the umbilical incision. The liver bed was evaluated and hemostasis was assured. The clips appeared to be in good position, with no bile leak. All ports were removed under direct vision of the camera. There was no abdominal wall bleeding. The umbilical fascia was closed with interrupted 0 Polysorb suture. The skin was approximated with subcuticular 4-0 Vicryl suture. Steri-Strips were applied. Patient tolerated the procedure well and was taken to the recovery room in stable condition. [id number]/[facility] #: [id number] [facility]
[2017-09-12] MEDS ORDERED: Scopolamine PATCH Remove* 1 NOTE MISC PATCH OFF ONE (05:51)
== END 2017-09-09 15:27 | disposition home or self-care (01) ==
LOC: OR 10:09
PROVIDERS: ATTEND Surgery
DX: K80.10 Calculus of gallbladder with chronic cholecystitis without obstruction (principal); R10.11 Right upper quadrant pain
CPT/HCPCS: 36415; 81025; 86703; 86706; 86803; 87340; 88304; A9270-GY; J0690; J0780; J1885; J2250; J2270; J2704; J3010; J8540

== ENCOUNTER 2018-05-14 17:27 | Emergency (ER) | payer MEDICAID, OTHER ==
--- NOTE | 2018-05-14 18:46 | ED ---
Lower Extremity - HPI Summary HPI Summary: 37-year-old female presents with bilateral foot pain for the past couple days. She states it is sharp in nature. She also noticed an area on her right calf hurts. She denies any known injury. She states she is not on control. No recent travel. Has pain radiates up to her right calf. She is nonsmoker. Denies any chance she is . No swelling. has no medical conditions. no chest pain or SOB. no numbness or tingling. history provided via crime scene technician. - History of Current Complaint Chief Complaint: EDExtremityLower Stated Complaint: FOOT PAIN Time Seen by Provider: 05/14/18 17:41 Hx Last Menstrual Period: 1 MONTH AGO Pain Intensity: 4 - Allergies/Home Medications Allergies/Adverse Reactions: Allergies Allergy/AdvReac Type Severity Reaction Status Date / Time No Known Allergies Allergy Verified 05/14/18 17:35 PMH/Surg Hx/FS Hx/Imm Hx Endocrine/Hematology History: Denies: Hx Anticoagulant Therapy Cardiovascular History: Reports: Hx Hypertension GI History: Reports: Other GI Disorders - cholecystitis Sensory History: Denies: Hx Contacts or Glasses, Hx Legally Blind, Hx Deafness, Hx Hearing Aid Opthamlomology History: Denies: Hx Contacts or Glasses, Hx Legally Blind - Surgical History Surgery Procedure, Year, and Place: never had surgery Hx Anesthesia Reactions: No - never had surgery Infectious Disease History: No Infectious Disease History: Denies: Traveled Outside the [place] in Last 30 Days - Family History Known Family History: Positive: Diabetes - Social History Alcohol Use: None Substance Use Type: Reports: None Smoking Status (MU): Never Smoked Tobacco Review of Systems Negative: Fever Negative: Chest Pain Negative: Shortness Of Breath Positive: Myalgia - bilateral foot pain All Other Systems Reviewed And Are Negative: Yes Physical Exam Triage Information Reviewed: Yes Vital Signs On Initial Exam: Initial Vitals Temp Pulse Resp BP Pulse Ox 97.3 F 80 15 134/78 97 05/14/18 17:31 05/14/18 17:31 05/14/18 17:31 05/14/18 17:31 05/14/18 17:31 Vital Signs Reviewed: Yes Appearance: Positive: Well-Appearing Skin: Positive: Warm, Dry Head/Face: Positive: Normal Head/Face Inspection Eyes: Positive: Normal, EOMI, BIN, Conjunctiva Clear ENT: Positive: Normal ENT inspection, Pharynx normal, TMs normal Respiratory/Lung Sounds: Positive: Clear to Auscultation, Breath Sounds Present Cardiovascular: Positive: Normal, RRR Abdomen Description: Positive: Nontender, Soft Bowel Sounds: Positive: Present Musculoskeletal: Positive: Laurent Sign Right - positive, Other - ecchymosis to right lower calf, tenderness right calf and foot, tenderness left foot. good pulses. Negative: Strength/ROM Intact - right and left foot, Edema Left, Edema Right Neurological: Positive: Normal Psychiatric: Positive: Normal Diagnostics - Vital Signs Vital Signs Temp Pulse Resp BP Pulse Ox 05/14/18 17:31 97.3 F 80 15 134/78 97 - Laboratory Result Diagrams: 05/14/18 19:50 Lab Statement: Any lab studies that have been ordered have been reviewed, and results considered in the medical decision making process. - Ultrasound No standard instances Ultrasound Interpretation Completed By: Radiologist Summary of Ultrasound Findings: IMPRESSION: 1. No right lower extremity deep vein thrombosis. 2. Right calf hematoma versus small mass. If no history of trauma, consider. followup MRI. Lower Extremity Course/Dx - Course Course Of Treatment: 37-year-old female presents with bilateral foot pain for the past couple days. She states it is sharp in nature. She also noticed an area on her right calf hurts. She denies any known injury. She states she is not on control. No recent travel. Has pain radiates up to her right calf. She is nonsmoker. Denies any chance she is . No swelling. has no medical conditions. On exam has ecchymosis noted to the posterior calf right. Tenderness of the right calf and foot. Neurovascular intact. Ultrasound shows possible hematoma versus mass. on exam appears most like a hematoma. Will have follow-up with primary. Patient understands agrees with plan. - Diagnoses Differential Diagnosis/HQI/PQRI: Positive: Contusion, DVT, Sprain Provider Diagnoses: Bilateral foot pain, Right calf pain Discharge - Sign-Out/Discharge Documenting (check all that apply): Patient Departure - Discharge Plan Condition: Good Disposition: HOME Patient Education Materials: Hematoma (ED) Print Language: [place] Referrals: Non Staff,Doctor [Primary Care Provider] - Additional Instructions: pain is right calf is likely due to a hematoma Place ice on the area elevate Take tyenlol or ibuprofen as needed for pain Follow up with primary Return to ED if develop any new or worsening symptoms - Billing Disposition and Condition Condition: GOOD Disposition: Home
[2018-05-14 20:11] LABS: ABS Basophils 0 10^3/ul (0-0.2); ABS Eosinophils 0.1 10^3/ul (0-0.6); ABS Lymphocytes 1.7 10^3/ul (1.0-4.8); ABS Monocytes 0.4 10^3/ul (0-0.8); ABS Neutrophils 3.2 10^3/ul (1.5-7.7); ABS Nucleated RBC 0 10^3/ul; Eosinophil % 1.6 %; Hematocrit 37 % (35-47); Hemoglobin 12.4 g/dl (12.0-16.0); Mean Corpuscular HGB Conc 34 g/dl (31-36); Mean Corpuscular Hemoglobin 30 pg (27-31); Mean Corpuscular Volume 88 fL (80-97); Mean Platelet Volume 9.4 fL (7.4-10.4); Nucleated Red Blood Cells % 0; Platelet Count 211 10^3/ul (150-450); Red Blood Count 4.13 10^6/ul (4.00-5.40); Red Cell Distribution Width 13 % (10.5-15); White Blood Count 5.4 10^3/ul (3.5-10.8)
[2018-05-14 20:23] LABS: ALT 20 U/L (7-52); AST 15 U/L (13-39); Albumin 3.9 g/dL (3.2-5.2); Albumin/Globulin Ratio 1.1 (1-3); Alkaline Phosphatase 152 U/L (34-104); Anion Gap 8 mmol/L (2-11); BUN/Creatinine Ratio 32.7 (8-20); Blood Urea Nitrogen 17 mg/dL (6-24); C Reactive Protein 1.43 mg/L (<8.01); CO2 Carbon Dioxide 26 mmol/L (22-32); Calcium 9.7 mg/dL (8.6-10.3); Chloride 105 mmol/L (101-111); EGFR African American 160.6 (>60); EGFR Non-African American 132.7 (>60); Globulin 3.6 g/dL (2-4); Glucose 101 mg/dL (70-100); Potassium 3.9 mmol/L (3.5-5.0); Sodium 139 mmol/L (135-145); Total Protein 7.5 g/dL (6.4-8.9)
[2018-05-14 20:28] LABS: INR 0.94 (0.77-1.02)
[2018-05-14 20:30] LABS: HCG Pregnancy < 0.60 mIU/mL
[2018-05-14 20:50] VITALS: BP 140/83
== END 2018-05-14 20:50 | disposition home or self-care (01) ==
LOC: ED 17:27
DX: M79.661 Pain in right lower leg (principal); M79.671 Pain in right foot; M79.672 Pain in left foot
CPT/HCPCS: 36415; 80053; 84702; 85025; 85610; 86140; 99282

== ENCOUNTER → 2018-08-26 10:17 | Emergency (ER) | payer MEDICAID ==
[~2018-08-26 10:17] MED LIST changes: +Al Hydrox/Mg Hydrox/Simet LIQ* 30 ML UDC PO ONE; -Buffered Lidocaine 0.9% SYRIN* 5 ML/SYR SYRINGE INTRADERM ONE; -Dexamethasone TAB* 4 MG PO ONE; -DiMENhydriNATE IV* 50 MG/ML VIAL IV PUSH PRN; -Famotidine IV* 10 MG/ML 2 ML (20 mg) IV ONE; +Iohexol 300* (CONTRAST) 10 ML SDV IV ONE; +Lidocaine 2% VISCOUS* 15 ML UDC PO ONE; -Morphine INJ* 2 MG/ML 1 ML CARPUJECT IV PRN; +NS 0.9% 1000 ML** 1,000 ML IV ONE; -Naloxone* 0.4 MG/ML 1 ML VIAL IV PRN; +Ondansetron INJ* 2 MG/ML VIAL IV ONE; -Ondansetron INJ* 2 MG/ML VIAL ONE; -PROCHLORPERAZINE INJ 5 MG/ML 2 ML VIAL IV PRN; +Pantoprazole IV* 40 MG IV ONE; -Scopolamine 1.5 mg* PATCH TRANSDERM PRN; +fentaNYL* 50 MCG/ML 2 ML VIAL (100 MCG VIAL) IV SLOW PU ONE; +fentaNYL* 50 MCG/ML 2 ML VIAL (100 MCG VIAL) ONE; -oxyCODONE/Acetamin 5/325 MG* TAB PO PRN
--- NOTE | 2018-08-26 10:51 | ED ---
HPI Diabetic - HPI Summary HPI Summary: Patient is a 37 y/o female who presents to the ED c/o abdominal pain. As per grey inspector, patients symptoms began this morning while lying in bed. Patient c/ o diffuse abdominal pain that radiates to her chest, SOB, and anxiety. She denies any N/V. Pain is rated a 6/10 in severity. Her last BM was this morning. PMHx HTN, she denies any DM. PSHx cholecystectomy. She recently gave . - History Of Current Complaint Chief Complaint: EDDiabeticProb Time Seen by Provider: 08/26/18 10:45 Hx Obtained From: Patient, Contract Negotiation Specialist - ipad, Medical Records Hx Last Menstrual Period: 1 MONTH AGO Onset/Duration: Gradual Onset, Lasting Hours - This morning, Still Present Timing: Constant Severity Currently: Moderate - 6/10 Character: Alert Associated Signs & Symptoms: Abdominal Pain, Shortness of Breath - Allergies/Home Medications Allergies/Adverse Reactions: Allergies Allergy/AdvReac Type Severity Reaction Status Date / Time No Known Allergies Allergy Verified 08/26/18 10:33 PMH/Surg Hx/FS Hx/Imm Hx Endocrine/Hematology History: Denies: Hx Anticoagulant Therapy, Hx Diabetes Cardiovascular History: Reports: Hx Hypertension GI History: Reports: Other GI Disorders - cholecystitis Sensory History: Denies: Hx Contacts or Glasses, Hx Legally Blind, Hx Deafness, Hx Hearing Aid Opthamlomology History: Denies: Hx Contacts or Glasses, Hx Legally Blind - Surgical History Surgery Procedure, Year, and Place: cholecystectomy Hx Anesthesia Reactions: No - never had surgery Infectious Disease History: No Infectious Disease History: Denies: Traveled Outside the [place] in Last 30 Days - Family History Known Family History: Positive: Diabetes - Social History Lives: With Family Alcohol Use: None Hx Substance Use: No Substance Use Type: Reports: None Hx Tobacco Use: No Smoking Status (MU): Never Smoked Tobacco Review of Systems Positive: Chest Pain Positive: Shortness Of Breath Positive: Abdominal Pain. Negative: Vomiting, Nausea Positive: Anxious All Other Systems Reviewed And Are Negative: Yes Physical Exam - Summary Physical Exam Summary: GENERAL: Patient is a well-developed and nourished F who is lying uncomfortable in the stretcher secondary to pain. Patient is not in any acute respiratory distress. HEAD AND FACE: Normocephalic EYES: PERRLA, EOMI x 2. EARS: Hearing grossly intact. MOUTH: Oropharynx within normal limits. NECK: Supple, trachea is midline, no adenopathy, no JVD, no carotid bruit. CHEST: Symmetric, no tenderness at palpation LUNGS: Clear to auscultation bilaterally. No wheezing or crackles. CVS: Regular rate and rhythm, S1 and S2 present, no murmurs or gallops appreciated. ABDOMEN: Soft. Diffuse tenderness to palpation, worse in epigastric region. Bowel sounds are normal. No abnormal abdominal pulsations. EXTREMITIES: Full ROM in all major joints, no edema, no cyanosis or clubbing. NEURO: Alert and oriented x 3. No acute neurological deficits. Speech is normal and follows commands. SKIN: Dry and warm Triage Information Reviewed: Yes Vital Signs On Initial Exam: Initial Vitals Temp Pulse Resp BP Pulse Ox 97.6 F 60 20 100/68 100 08/26/18 10:33 08/26/18 10:33 08/26/18 10:33 08/26/18 10:33 08/26/18 10:33 Vital Signs Reviewed: Yes Diagnostics - Vital Signs Vital Signs Temp Pulse Resp BP Pulse Ox 08/26/18 10:33 97.6 F 60 20 100/68 100 - Laboratory Result Diagrams: 08/26/18 11:00 08/26/18 11:00 Lab Statement: Any lab studies that have been ordered have been reviewed, and results considered in the medical decision making process. - Radiology CXR Radiology Interpretation Completed By: Radiologist Summary of Radiographic Findings: NO EVIDENCE FOR ACUTE DISEASE. ED physician reviewed radiology report. - CT CT A/P CT Interpretation Completed By: Radiologist Summary of CT Findings: No abnormal masses or fluid collections are noted. Probable hemorrhagic cyst is noted in the right ovary. Nondistended bowel due to lack of oral contrast. Possibility of antral gastritis is not excluded. ED physician reviewed radiology report. - Ultrasound No standard instances Ultrasound Interpretation Completed By: Radiologist Summary of Ultrasound Findings: Pelvic/Transvaginal US: 1. COMPLEX RIGHT OVARIAN CYST. RECOMMEND A FOLLOW-UP PELVIC ULTRASOUND IN 2 MONTHS TIME. 2. MILDLY THICKENED ENDOMETRIUM. ED physician reviewed radiology report. - EKG 10:55 Cardiac Rate: Bradycardia - 53 bpm EKG Rhythm: Sinus Bradycardia Summary of EKG Findings: ST elevation in V1-V2, no reciprocal ST depression 15:05 Cardiac Rate: NL - 66 bpm EKG Rhythm: Sinus Rhythm Summary of EKG Findings: Borderline ST elevation in anterior leads Re-Evaluation - Re-Evaluation First Eval Re-Evaluation Time: 15:13 Change: Improved Comment: Pain is completely gone with the GI cocktail. Diabetic Course/Dx - Course Course Of Treatment: Patient is a 37 y/o female who presents to the ED c/o diffuse abdominal pain that radiates to her chest, SOB, and anxiety. PSHx cholecystectomy. A physical exam revealed Diffuse tenderness to palpation, worse in epigastric region, uncomfortable due to pain. A CXR was negative. A CT A/P revealed No abnormal masses or fluid collections are noted. Probable hemorrhagic cyst is noted in the right ovary. Nondistended bowel due to lack of oral contrast. Possibility of antral gastritis is not excluded. A pelvic/ transvaginal US revealed 1. COMPLEX RIGHT OVARIAN CYST. RECOMMEND A FOLLOW-UP PELVIC ULTRASOUND IN 2 MONTHS TIME. 2. MILDLY THICKENED ENDOMETRIUM. An EKG at 10:55 revealed bradycardia, ST elevation in V1-V2, no reciprocal ST depression. A second EKG at 15:05 revealed NSR, Borderline ST elevation in anterior leads. Dr. Brody consulted and was not concerned with the EKG due to the lack of reciprocal ST depressions. Bloodwork without abnormalities. In the course patient received a GI cocktail, fluids, and Fentanyl which improved her pain. Final dx of gastritis and complex right ovarian cyst. Patient is discharged home. I discussed results with patient, and she reports feeling better. She is hemodynamically stable and safe for discharge. Strict return precautions given and she will otherwise follow up with her PCP. - Diagnoses Provider Diagnoses: Gastritis, Complex cyst of right ovary - Physician Notifications Discussed Care Of Patient With: Robbie Brody Time Discussed With Above Provider: 11:04 Instructed by Provider To: Other Discharge - Sign-Out/Discharge Documenting (check all that apply): Patient Departure - Discharge Patient Received Moderate/Deep Sedation with Procedure: No - Discharge Plan Condition: Improved Disposition: HOME Prescriptions: Pantoprazole TAB * [Protonix TAB*] 20 mg PO DAILY #30 tab Pantoprazole TAB * [Protonix TAB*] 40 mg PO DAILY #30 tab Patient Education Materials: Ovarian Cyst (ED), Gastritis (ED) Print Language: SERBIAN Referrals: [facility] [Outside] (1-3 days) Eulalio Lucio MD [Medical Doctor] - (1-3 days) Stefano Parikh MD [Medical Doctor] - (1-3 days) Additional Instructions: RETURN TO THE EMERGENCY DEPARTMENT FOR CHANGING OR WORSENING SYMPTOMS. - Billing Disposition and Condition Condition: IMPROVED Disposition: Home - Attestation Statements Document Initiated by Scribe: Yes Documenting Scribe: Jenn Vela Provider For Whom Scribe is Documenting (Include Credential): Cornelia Donohue MD Scribe Attestation: Jenn Nair, scribed for Cornelia Donohue MD on 08/26/18 at 1811. Scribe Documentation Reviewed: Yes Provider Attestation: The documentation as recorded by the Jenn raman accurately reflects the service I personally performed and the decisions made by , Cornelia Donohue MD Status of Scribe Document: Viewed
[2018-08-26 11:23] LABS: ABS Lymphocytes 0.9 10^3/ul (1.0-4.8); ABS Monocytes 0.4 10^3/ul (0-0.8); ABS Neutrophils 4.7 10^3/ul (1.5-7.7); Eosinophil % 0.5 %; Hematocrit 38 % (35-47); Hemoglobin 13.2 g/dL (12.0-16.0); Lymphocyte % 15.3 %; Mean Corpuscular HGB Conc 35 g/dL (31-36); Mean Corpuscular Hemoglobin 31 pg (27-31); Mean Corpuscular Volume 90 fL (80-97); Mean Platelet Volume 9.7 fL (7.4-10.4); Nucleated Red Blood Cells % 0.1; Platelet Count 166 10^3/uL (150-450); Red Blood Count 4.24 10^6 /uL (3.70-4.87); Red Cell Distribution Width 14 % (10.5-15); White Blood Count 6.1 10^3/uL (3.5-10.8)
[2018-08-26 11:43] LABS: Albumin 4.4 g/dL (3.2-5.2); Albumin/Globulin Ratio 1.3 (1-3); BUN/Creatinine Ratio 23.3 (8-20); C Reactive Protein 1.96 mg/L (<8.01); Calcium 9.2 mg/dL (8.6-10.3); EGFR African American 136.1 (>60); EGFR Non-African American 112.5 (>60); Globulin 3.5 g/dL (2-4); Potassium 3.4 mmol/L (3.5-5.0); Total Bilirubin 1.6 mg/dL (0.2-1.0); Total Protein 7.9 g/dL (6.4-8.9)
[2018-08-26 11:44] LABS: Troponin I 0.01 ng/mL (<0.04)
[2018-08-26 11:45] LABS: Activated Partial Thrombo Time 29.1 seconds (26.0-36.3)
[2018-08-26 11:46] LABS: BNP 33 pg/mL (<=100)
[2018-08-26 11:48] LABS: HCG Pregnancy 3.64 mIU/mL
[2018-08-26 16:13] VITALS: BP 116/61
== END | disposition home or self-care (01) ==
LOC: ED 10:17
DX: K29.70 Gastritis, unspecified, without bleeding (principal); N83.201 Unspecified ovarian cyst, right side; I10 Essential (primary) hypertension; K81.1 Chronic cholecystitis; R06.02 Shortness of breath
CPT/HCPCS: 36415; 71045; 74177; 76830; 76856; 80053; 82140; 82150; 83605; 83690; 83735; 83880; 84484; 84702; 85025; 85379; 85730; 86140; 87040; 93005; 96361; 96374; 96375; 99283; A9270-GY; J2405; J3010; Q9967

== ENCOUNTER 2018-10-19 22:48 | Emergency (ER) | payer MEDICAID ==
--- NOTE | 2018-10-20 00:31 | ED ---
Abdominal Pain/Female - HPI Summary HPI Summary: This patient is a 38 year old F presenting to ED with a chief complaint of lower abdominal pain since 1400 today. The pain radiates to the lower back. Last period was on 08/04/18. A0. The patient rates the pain 6/10 in severity. Symptoms aggravated by nothing. Symptoms alleviated by nothing. Patient reports N/V/D, vaginal bleeding/spotting beginning yesterday. Patient denies fever. PSHx of cholecystectomy. - History of Current Complaint Chief Complaint: EDAbdPain Stated Complaint: ABD PAIN PER PT Time Seen by Provider: 10/20/18 00:16 Hx Obtained From: Patient, Family/[employer] Operations Manager Hx Last Menstrual Period: 08/04/18 Onset/Duration: Lasting Hours - 1400 today, Still Present Timing: Constant Severity Initially: Moderate Severity Currently: Moderate Pain Intensity: 6 Pain Scale Used: 0-10 Numeric Location: Diffuse - Lower abdominal Radiates: Yes Radiates to: Back Aggravating Factor(s): Nothing Alleviating Factor(s): Nothing Associated Signs and Symptoms: Positive: Vaginal Bleeding, Nausea, Vomiting, Diarrhea. Negative: Fever Allergies/Adverse Reactions: Allergies Allergy/AdvReac Type Severity Reaction Status Date / Time No Known Allergies Allergy Verified 10/20/18 00:36 PMH/Surg Hx/FS Hx/Imm Hx Endocrine/Hematology History: Denies: Hx Anticoagulant Therapy, Hx Diabetes Cardiovascular History: Reports: Hx Hypertension GI History: Reports: Other GI Disorders - cholecystitis History: Denies: Hx Renal Disease Sensory History: Denies: Hx Contacts or Glasses, Hx Legally Blind, Hx Deafness, Hx Hearing Aid Opthamlomology History: Denies: Hx Contacts or Glasses, Hx Legally Blind - Surgical History Surgery Procedure, Year, and Place: cholecystectomy Hx Anesthesia Reactions: No - never had surgery Infectious Disease History: No Infectious Disease History: Denies: Traveled Outside the [place] in Last 30 Days - Family History Known Family History: Positive: Diabetes - Social History Alcohol Use: None Hx Substance Use: No Substance Use Type: Reports: None Hx Tobacco Use: No Smoking Status (MU): Never Smoked Tobacco Review of Systems Negative: Fever Positive: Abdominal Pain, Vomiting, Diarrhea, Nausea Genitourinary: Other - Vaginal bleeding All Other Systems Reviewed And Are Negative: Yes Physical Exam - Summary Physical Exam Summary: Appearance: Well appearing, no pain distress Skin: warm, dry, reflects adequate perfusion Head/face: normal Eyes: EOMI, BIN ENT: normal Neck: supple, non-tender Respiratory: CTA, breath sounds present Cardiovascular: RRR, pulses symmetrical Abdomen: tenderness in RLQ Musculoskeletal: normal, strength/ROM intact Neuro: normal, sensory motor intact, A&Ox3 Triage Information Reviewed: Yes Vital Signs On Initial Exam: Initial Vitals Temp Pulse Resp BP Pulse Ox 97.7 F 79 20 126/82 98 10/19/18 22:54 10/19/18 22:54 10/19/18 22:54 10/19/18 22:54 10/19/18 22:54 Vital Signs Reviewed: Yes Diagnostics - Vital Signs Vital Signs Temp Pulse Resp BP Pulse Ox 10/19/18 22:54 97.7 F 79 20 126/82 98 - Laboratory Result Diagrams: 10/20/18 00:22 10/20/18 00:22 Lab Statement: Any lab studies that have been ordered have been reviewed, and results considered in the medical decision making process. - Ultrasound Ultrasound Interpretation Completed By: Radiologist Summary of Ultrasound Findings: 1. Findings concerning for failed first trimester . 2. Bilateral ovarian cysts. Dr. Broussard has reviewed this radiology report. Re-Evaluation - Re-Evaluation First Eval Re-Evaluation Time: 05:16 Comment: Discussed results with patient. Patient will be discharged home with instructions to follow-up with OBGYN today. Patient understands and agrees with this plan. Abdominal Pain Fem Course/Dx - Course Course Of Treatment: This patient is a 38 year old F presenting to ED with a chief complaint of lower abdominal pain since 1400 today. Blood work and UA obtained. In the ED course, patient received morphine, Zofran, and fluids. US revealed 1. Findings concerning for failed first trimester . 2. Bilateral ovarian cysts. Discussed patient case with Dr. Oates who recommended the patient be discharged home and see OBGYN this morning. Patient will be discharged home with dx of early and threatened miscarriage and instructions to follow up with OBGYN. Patient understands and agrees with this plan. - Diagnoses Differential Diagnosis: Positive: Ovarian Cyst, , Urinary Tract Infection Provider Diagnoses: Early stage of - Provider Notifications Discussed Care Of Patient With: Landry Oates Time Discussed With Above Provider: 04:24 Instructed by Provider To: Other - Discussed patient case with Dr. Oates who recommended the patient be discharged home and see OBGYN this morning. Discharge - Sign-Out/Discharge Documenting (check all that apply): Patient Departure - Discharge Patient Received Moderate/Deep Sedation with Procedure: No - Discharge Plan Condition: Stable Disposition: HOME Patient Education Materials: Threatened Miscarriage (ED), (ED) Referrals: Edgar Duran MD [Medical Doctor] - As Soon As Possible Additional Instructions: Follow-up with your primary care provider in three days. RETURN TO THE ER FOR WORSENING OR CHANGING SYMPTOMS. - Billing Disposition and Condition Condition: STABLE Disposition: Home - Attestation Statements Document Initiated by Scribe: Yes Documenting Scribe: Elfego Blandon Provider For Whom Joe is Documenting (Include Credential): Dale Broussard MD Scribe Attestation: Elfego Nair, scribed for Dale Broussard MD on 10/20/18 at 0529. Scribe Documentation Reviewed: Yes Provider Attestation: The documentation as recorded by the Elfego raman accurately reflects the service I personally performed and the decisions made by , Dale Broussard MD Status of Scribe Document: Viewed
[2018-10-20 00:35] LABS: ABS Eosinophils 0.1 10^3/ul (0-0.6); ABS Lymphocytes 2.3 10^3/ul (1.0-4.8); ABS Monocytes 0.5 10^3/ul (0-0.8); ABS Neutrophils 3.6 10^3/ul (1.5-7.7); Eosinophil % 1.1 %; Hematocrit 33 % (35-47); Hemoglobin 11.4 g/dL (12.0-16.0); Lymphocyte % 35.1 %; Mean Corpuscular HGB Conc 35 g/dL (31-36); Mean Corpuscular Hemoglobin 31 pg (27-31); Mean Corpuscular Volume 90 fL (80-97); Mean Platelet Volume 9.1 fL (7.4-10.4); Nucleated Red Blood Cells % 0.1; Platelet Count 204 10^3/uL (150-450); Red Blood Count 3.63 10^6 /uL (3.70-4.87); Red Cell Distribution Width 14 % (10-15); White Blood Count 6.5 10^3/uL (3.5-10.8)
[2018-10-20] MEDS ORDERED: Ondansetron INJ* 2 MG/ML VIAL IV ONE (00:37)
[2018-10-20] MEDS ORDERED: Morphine 4 MG/ML VIAL (1 ml) 4 MG/ML VIAL IV ONE (00:38)
[2018-10-20 00:40] LABS: Activated Partial Thrombo Time 34.9 seconds (26.0-38.0); INR 0.99 (0.82-1.09)
[2018-10-20] MEDS ORDERED: NS 0.9% 1000 ML** 1,000 ML IV SCH (00:45)
[2018-10-20 00:51] LABS: Urine Appearance Clear; Urine Bacteria Absent (Absent); Urine Bilirubin Negative (Negative); Urine Blood 1+ (Negative); Urine Color Yellow; Urine Glucose Negative (Negative); Urine Ketones Negative (Negative); Urine Nitrite Negative (Negative); Urine Protein Negative (Negative); Urine Red Blood Cell Trace(0-2/hpf) (Absent); Urine Specific Gravity 1.025 (1.010-1.030); Urine Squamous Epithelial Cell Present (Absent); Urine Urobilinogen Negative (Negative); Urine White Blood Cell Absent (Absent)
[2018-10-20 00:55] LABS: Albumin/Globulin Ratio 1.2 (1-3); BUN/Creatinine Ratio 25.8 (8-20); Calcium 8.8 mg/dL (8.6-10.3); EGFR African American 121.3 (>60); EGFR Non-African American 100.2 (>60); Globulin 3.3 g/dL (2-4); Potassium 3.6 mmol/L (3.5-5.0); Total Bilirubin 0.3 mg/dL (0.2-1.0); Total Protein 7.3 g/dL (6.4-8.9)
[2018-10-20 05:38] VITALS: BP 104/52
== END 2018-10-20 05:25 | disposition home or self-care (01) ==
LOC: ED 22:48
DX: Z34.80 Encounter for supervision of other normal pregnancy, unspecified trimester (principal)
CPT/HCPCS: 36415; 76801; 80053; 81003; 81015; 83690; 84702; 85025; 85610; 85730; 86850; 86900; 86901; 96361; 96374; 96375; 99283; J2270; J2405

== ENCOUNTER 2018-10-27 14:45 | Emergency (ER) | payer MEDICAID ==
[2018-10-27] MEDS ORDERED: NS 0.9% 1000 ML** 1,000 ML IV ONE (15:35)
--- NOTE | 2018-10-27 15:38 | ED ---
- HPI Summary HPI Summary: 38 year old female presents with vaginal bleeding today. She states that she has been passing clots and has been bleeding a lot. States she's been a little dizzy. She states that she has been having nausea but no vomiting. She admits to crampy abdominal pain that radiates to the back. She admits to dysuria. Denies any chest pain shortness of breath. Has never had a miscarriage before. Has no medical conditions. Not on any medications. Denies any fever. No diarrhea or constipation. On exam tenderness lower abdomen. Ultrasound last week shows demise so this - History of Current Complaint Chief Complaint: EDBackInjuryPain Stated Complaint: BACK AND STOMACH PAIN PER PT Time Seen by Provider: 10/27/18 15:16 Pain Intensity: 3 - Assessment SAB: 0 IEA: 0 - Additional Pertinent History Primary Care Physician: [id number] Maternal Blood Type and Rh: O Positive - Allergies/Home Medications Allergies/Adverse Reactions: Allergies Allergy/AdvReac Type Severity Reaction Status Date / Time No Known Allergies Allergy Verified 10/27/18 15:03 Home Medications: Home Medications NK [No Home Medications Reported] 10/27/18 [History Confirmed 10/27/18] PMH/Surg Hx/FS Hx/Imm Hx Endocrine/Hematology History: Denies: Hx Anticoagulant Therapy, Hx Diabetes Cardiovascular History: Reports: Hx Hypertension GI History: Reports: Other GI Disorders - cholecystitis History: Denies: Hx Renal Disease Sensory History: Denies: Hx Contacts or Glasses, Hx Legally Blind, Hx Deafness, Hx Hearing Aid Opthamlomology History: Denies: Hx Contacts or Glasses, Hx Legally Blind - Surgical History Surgery Procedure, Year, and Place: cholecystectomy Hx Anesthesia Reactions: No - never had surgery Infectious Disease History: No Infectious Disease History: Denies: Traveled Outside the [place] in Last 30 Days - Family History Known Family History: Positive: Diabetes - Social History Alcohol Use: None Hx Substance Use: No Substance Use Type: Reports: None Hx Tobacco Use: No Smoking Status (MU): Never Smoked Tobacco Review of Systems Negative: Fever Negative: Chest Pain Negative: Shortness Of Breath Positive: Abdominal Pain All Other Systems Reviewed And Are Negative: Yes Physical Exam - Physical Exam Triage Information Reviewed: Yes Vital Signs Reviewed: Yes Appearance: Positive: Well-Appearing Skin: Positive: Warm, Dry Head/Face: Positive: Normal Head/Face Inspection Eyes: Positive: Normal, Conjunctiva Clear ENT: Positive: Pharynx normal Respiratory/Lung Sounds: Positive: Clear to Auscultation, Breath Sounds Present Cardiovascular: Positive: Normal, RRR Abdomen Description: Positive: Soft, Other: - tenderness lower abd Bowel Sounds: Positive: Present Pelvic Exam: External Exam Normal, Other - minimial bleeding Musculoskeletal: Positive: Normal Neurological: Positive: Normal Psychiatric: Positive: Normal Diagnostics - Vital Signs Vital Signs Temp Pulse Resp BP Pulse Ox 10/27/18 14:53 98.3 F 69 17 113/66 100 - Laboratory Result Diagrams: 10/27/18 16:27 10/27/18 16:27 Lab Statement: Any lab studies that have been ordered have been reviewed, and results considered in the medical decision making process. Re-Evaluation - Re-Evaluation First Eval Comment: discussed results about previous ultrasound Course/Dx - Course Course Of Treatment: 38 year old female presents with vaginal bleeding today. She states that she has been passing clots and has been bleeding a lot. States she's been a little dizzy. She states that she has been having nausea but no vomiting. She admits to crampy abdominal pain that radiates to the back. She admits to dysuria. Denies any chest pain shortness of breath. Has never had a miscarriage before. Has no medical conditions. Not on any medications. Denies any fever. No diarrhea or constipation. On exam tenderness lower abdomen. Ultrasound last week shows demise so patient should be miscarrying. pelvic minimial bleed present. hcg 7000 this [place] [id number] last week. explained results via billet checker and patient understands the importance of following up with ob. warned of signs to return for. patient understand and agrees with plan. - Differential Diagnosis/HQI/PQRI: Incomplete , Spontaneous , Threatened - Diagnoses Provider Diagnoses: Miscarriage Discharge - Sign-Out/Discharge Documenting (check all that apply): Patient Departure Patient Received Moderate/Deep Sedation with Procedure: No - Discharge Plan Condition: Stable Disposition: HOME Patient Education Materials: Miscarriage (ED) Print Language: MAORI Referrals: Landry Oates MD [Medical Doctor] - Additional Instructions: Follow up with ob Take tyenlol as needed for pain Return to ED if develop any new or worsening symptoms - Billing Disposition and Condition Condition: STABLE Disposition: Home
[2018-10-27 16:35] LABS: ABS Eosinophils 0.1 10^3/ul (0-0.6); ABS Lymphocytes 1.8 10^3/ul (1.0-4.8); ABS Monocytes 0.5 10^3/ul (0-0.8); ABS Neutrophils 3.1 10^3/ul (1.5-7.7); Eosinophil % 1.1 %; Hematocrit 32 % (35-47); Lymphocyte % 32.9 %; Mean Corpuscular HGB Conc 34 g/dL (31-36); Mean Corpuscular Hemoglobin 31 pg (27-31); Mean Corpuscular Volume 91 fL (80-97); Nucleated Red Blood Cells % 0.1; Platelet Count 176 10^3/uL (150-450); Red Blood Count 3.56 10^6 /uL (3.70-4.87); Red Cell Distribution Width 14 % (10-15); White Blood Count 5.4 10^3/uL (3.5-10.8)
[2018-10-27 16:41] LABS: INR 1.06 (0.82-1.09)
[2018-10-27 16:54] LABS: Albumin 3.9 g/dL (3.2-5.2); Albumin/Globulin Ratio 1.2 (1-3); BUN/Creatinine Ratio 28.8 (8-20); EGFR African American 159.7 (>60); Globulin 3.2 g/dL (2-4); Potassium 3.7 mmol/L (3.5-5.0); Total Bilirubin 0.5 mg/dL (0.2-1.0); Total Protein 7.1 g/dL (6.4-8.9)
[2018-10-27 18:08] VITALS: BP 112/67
== END 2018-10-27 18:00 | disposition home or self-care (01) ==
LOC: ED 14:45
DX: O03.9 Complete or unspecified spontaneous abortion without complication (principal); Z3A.00 Weeks of gestation of pregnancy not specified
CPT/HCPCS: 36415; 80053; 84702; 85025; 85610; 86850; 86900; 86901; 96360; 99283